=== PATIENT | female | born 1990 | race American Indian/Alaskan Native ===

== ENCOUNTER 2018-05-08 02:32 | Emergency (ER) | payer BC ==
[2018-05-08] MEDS ORDERED: Ondansetron 4 MG Tab.DIS PO ONE (02:57)
--- NOTE | 2018-05-08 03:04 | EDM.PDOC ---
ED HPI GENERAL MEDICAL PROBLEM - General Chief Complaint: General Stated Complaint: RIGHT SIDE SHOULDER AND HIP PAIN Time Seen by Provider: 05/08/18 02:39 - History of Present Illness INITIAL COMMENTS - FREE TEXT/NARRATIVE: HISTORY AND PHYSICAL: History of present illness: The patient is a 27 y/o female who presents with complaints of nausea and 2 episodes of vomiting right shoulder posteriorly and right posterior hip pain after sustaining a fall yesterday morning. She says the fall occurred at a proximally 7 AM yesterday about 20 hours ago and she hit the right side of her head and has a lump there and landed on the right side of her body. She did not pass out or blacked out but she has had nausea and dizziness ever since the fall and she's been putting ice on the bump on her head. Patient did take over- the-counter medications and has discomfort but no discrete headache and no neck pain. She has no chest pain or shortness of breath and says the posterior right shoulder is tender and uncomfortable although she is able to move her arm and she also has discomfort in her right hip posteriorly more near the buttocks area. She has no midline back pain no lower extremity complaints and no left- sided complaints. The patient says that she has not vomited for at least 8 hours she has been taking small sips of fluid. The patient denies as she has an IUD in place and is not sexually active Review of systems: As per history of present illness and below otherwise all systems reviewed and negative. Past medical history: As per history of present illness and as reviewed below otherwise noncontributory. Surgical history: As per history of present illness and as reviewed below otherwise noncontributory. Social history: No reported history of drug or alcohol abuse. Family history: As per history of present illness and as reviewed below otherwise noncontributory. Physical exam: General: Well-developed well-nourished female who is nontoxic and ambulated to the ED without distress HEENT: Atraumatic except for a small localized area of soft tissue swelling behind the right ear without any mastoid tenderness and no scalp deformities,, normocephalic, pupils reactive, negative for conjunctival pallor or scleral icterus, mucous membranes moist, throat clear, neck supple, nontender, trachea midline. TMs are normal, EOMs are intact, there is no evidence of any facial defects deformities or soft tissue swelling Lungs: Clear to auscultation, breath sounds equal bilaterally, chest nontender. Heart: S1S2, regular rate and rhythm no overt murmurs. Abdomen: Soft, nondistended, nontender. Negative for masses or hepatosplenomegaly. Negative for costovertebral tenderness. Pelvis: Stable nontender. There is no hip tenderness on palpation especially on the right. There is some soft tissue tenderness at the right buttocks area and the right posterior pelvis area but it is more soft tissue in nature then bony. There is no visible evidence of any ecchymosis or erythema abrasions or soft tissue swelling Genitourinary: Deferred. Rectal: Deferred. Extremities: Atraumatic, full range of motion of all extremities including the right upper extremity with the patient has tenderness at the right scapula and right AC joint area without clavicle tenderness or humerus tenderness.. Neurovascular unremarkable. Neuro: Awake, alert, oriented. Cranial nerves II through XII unremarkable. Cerebellum unremarkable. Motor and sensory unremarkable throughout. Exam nonfocal. Back: There are no midline step-offs in his defects of the thoracic lumbar spine Diagnostics: CT scan of the head, x-ray of the right shoulder Therapeutics: Zofran Toradol Impression: Fall with right posterior shoulder and right posterior hip contusion, concussion syndrome Definitive disposition and diagnosis as appropriate pending reevaluation and review of above. Right Hip Pain Score (Numeric/FACES): 7 right shoulder Pain Score (Numeric/FACES): 5 - Related Data Allergies Allergy/AdvReac Type Severity Reaction Status Date / Time No Known Allergies Allergy Verified 05/08/18 02:45 Home Meds: Home Meds . 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 ED EXAM, GENERAL - Physical Exam Exam: See Below (See dictation) Course - Vital Signs Last Recorded V/S: Last Vital Signs Temp 36.1 C 05/08/18 02:42 Pulse 75 05/08/18 02:42 Resp 17 05/08/18 02:42 BP 124/87 05/08/18 02:42 Pulse Ox 97 05/08/18 02:42 - Orders/Labs/Meds Orders: Active Orders 24 hr Category Date Time Status Head wo Cont [CT] Stat Exams 05/08/18 02:57 Ordered Shoulder Comp Rt [CR] Stat Exams 05/08/18 02:57 Ordered Meds: Medications Discontinued Medications Generic Name Dose Route Start Last Admin Trade Name Garcíaq PRN Reason Stop Dose Admin Ketorolac Tromethamine 60 mg 05/08/18 03:06 05/08/18 03:08 Toradol IM 05/08/18 03:07 60 mg ONETIME ONE Administration Ondansetron HCl 4 mg 05/08/18 02:57 05/08/18 03:04 Zofran Odt PO 05/08/18 02:58 4 mg ONETIME ONE Administration Departure - Departure Time of Disposition: 03:45 Disposition: Home, Self-Care 01 Condition: Good Clinical Impression: Fall Qualifiers: Encounter type: initial encounter Qualified Code(s): W19.XXXA - Unspecified fall, initial encounter Contusion of shoulder Qualifiers: Encounter type: initial encounter Laterality: right Qualified Code(s): S40.011A - Contusion of right shoulder, initial encounter Contusion of hip Qualifiers: Encounter type: initial encounter Laterality: right Qualified Code(s): S70.01XA - Contusion of right hip, initial encounter Concussion Qualifiers: Encounter type: initial encounter Loss of consciousness presence/duration: without LOC Qualified Code(s): S06.0X0A - Concussion without loss of consciousness, initial encounter - Discharge Information Referrals: PCP,None [Primary Care Provider] - Forms: ED Department Discharge Additional Instructions: The following information is given to patients seen in the emergency department who are being discharged to home. This information is to outline your options for follow-up care. We provide all patients seen in our emergency department with a follow-up referral. The need for follow-up, as well as the timing and circumstances, are variable depending upon the specifics of your emergency department visit. If you don't have a primary care physician on staff, we will provide you with a referral. We always advise you to contact your personal physician following an emergency department visit to inform them of the circumstance of the visit and for follow-up with them and/or the need for any referrals to a consulting specialist. The emergency department will also refer you to a specialist when appropriate. This referral assures that you have the opportunity for followup care with a specialist. All of these measure are taken in an effort to provide you with optimal care, which includes your followup. Under all circumstances we always encourage you to contact your private physician who remains a resource for coordinating your care. When calling for followup care, please make the office aware that this follow-up is from your recent emergency room visit. If for any reason you are refused follow-up, please contact the [facility] emergency department at and ask to speak to the emergency department charge nurse. [facility]- Internal Medicine and Family [address] [address] Use ice to all areas of discomfort and expect aches and pains of the next several days to one week. Use [id number] Tylenol or ibuprofen for any pain. Signs and symptoms of concussion can last anywhere from one day to 2 weeks and the nausea dizziness lightheadedness is all part of that syndrome. Use Zofran as you have been prescribed for nausea and vomiting. Push sips of fluids and bland bites of food. Call and schedule a follow-up appointment with one of our providers or with your provider the next few days for reevaluation and further care and return to ER as needed and as discussed - My Orders Last 24 Hours: My Active Orders 05/08/18 02:57 Head wo Cont [CT] Stat Shoulder Comp Rt [CR] Stat - Assessment/Plan Last 24 Hours: My Active Orders 05/08/18 02:57 Head wo Cont [CT] Stat Shoulder Comp Rt [CR] Stat
[2018-05-08] MEDS ORDERED: Ketorolac 60 MG/2 ML SDV IM ONE (03:06)
--- NOTE | 2018-05-08 04:05 | CR ---
INDICATION: Shoulder pain COMPARISON: None available. TECHNIQUE: The right shoulder was examined with AP, axillary, and outlet views for a total of three views. FINDINGS: The osseous structures are in anatomic alignment without fracture or dislocation. There is anatomic alignment of the humeral head and glenoid. The visualized chest is clear. IMPRESSION: Normal right shoulder. Dictated by Keny Ribera MD @ May 08 2018 4:04AM Signed by Dr. Keny Ribera @ May 08 2018 4:05AM
--- NOTE | 2018-05-08 04:05 | CT ---
INDICATION: Pain COMPARISON: None available. TECHNIQUE: CT examination of the head was performed with 3 mm thick axial sections without intravenous contrast. Images were obtained from the vertex of the skull through the skull base, and I examined the images with the brain and bone windows. Please note that all CT scans at this facility use dose modulation, iterative reconstruction, and/or weight-based dosing when appropriate to reduce radiation dose to as low as reasonably achievable. FINDINGS: : The brain is normal in appearance for the patient`s age on today`s study, with no sign of mass lesion, mass effect, hemorrhage, or edema. Incidental note is made of a cavum septum pellucidum and cavum vergae. The ventricles and sulci are otherwise normal in appearance for the patient`s age. The visualized portions of the orbits are normal in appearance. There is moderate mucosal thickening in the left maxillary sinus from moderate chronic sinusitis. The rest of the visualized visualized portions of the paranasal sinuses and mastoids are clear. The osseous structures are normal in their appearance with no sign of abnormality in the skull base or calvarium. IMPRESSION: Normal noncontrast CT of the brain for the patient`s age with nothing seen in the brain to explain the patient`s headaches. Moderate chronic left maxillary sinusitis. Please note that all CT scans at this facility use dose modulation, iterative reconstruction, and/or weight-based dosing when appropriate to reduce radiation dose to as low as reasonably achievable. Dictated by Keny Ribera MD @ May 08 2018 4:02AM Signed by Dr. Keny Ribera @ May 08 2018 4:04AM
== END 2018-05-08 04:15 | disposition home or self-care (01) ==
LOC: MW.ED 02:32
DX: S06.0X0A Concussion without loss of consciousness, initial encounter (principal); S40.011A Contusion of right shoulder, initial encounter; S70.01XA Contusion of right hip, initial encounter; R11.2 Nausea with vomiting, unspecified; F17.210 Nicotine dependence, cigarettes, uncomplicated; W19.XXXA Unspecified fall, initial encounter
CPT/HCPCS: 70450; 73030; 96372; 99284; A9270; J1885

== ENCOUNTER 2020-04-13 05:36 | Emergency (ER) | payer BC ==
--- NOTE | 2020-04-13 05:54 | EDM.PDOC ---
<JoseNakul Silver - Last Filed: 04/13/20 09:17> ED HPI GENERAL MEDICAL PROBLEM - General Chief Complaint: Respiratory Problem Stated Complaint: CHEST PAIN Time Seen by Provider: 04/13/20 05:38 - Related Data Allergies Allergy/AdvReac Type Severity Reaction Status Date / Time No Known Allergies Allergy Verified 04/13/20 05:46 Home Meds: Home Meds . [No Known Home Meds] 05/08/18 [History] Course - Re-Assessments/Exams Free Text/Narrative Re-Assessment/Exam: 04/13/20 07:20 Patient has an elevated troponin. Patient EKG does not show any ischemic changes. Patient has pain only with deep breaths. Will obtain CT PE and likely admission or transfer. 04/13/20 09:[address] PE does not show any clots. We spoke to [facility] and patient will be transferring him there she was sent to the ER. Will start patient on heparin. Departure - Departure Time of Disposition: 09:17 Disposition: DC/Tfer to [facility] 02 Clinical Impression: Pleurisy, Viral syndrome, Elevated troponin - Discharge Information *PRESCRIPTION DRUG MONITORING PROGRAM REVIEWED*: Not Applicable *COPY OF PRESCRIPTION DRUG MONITORING REPORT IN PATIENT LY: Not Applicable Instructions: Viral Illness, Adult, Pleurisy, [id number] Referrals: PCP,None [Primary Care Provider] - Forms: ED Department Discharge Additional Instructions: Notes at the end of my shift with troponin I pending: These instructions will be given to patient if troponin is normal and remains so: [id number] anti-inflammatory medicine such as ibuprofen or naproxen are advised for the pain. [facility] - Primary Care [address] [place] [address] [id number] [address] [address] The following information is given to patients seen in the emergency department who are being discharged to home. This information is to outline your options for follow-up care. We provide all patients seen in our emergency department with a follow-up referral. The need for follow-up, as well as the timing and circumstances, are variable depending upon the specifics of your emergency department visit. If you don't have a primary care physician on staff, we will provide you with a referral. We always advise you to contact your personal physician following an emergency department visit to inform them of the circumstance of the visit and for follow-up with them and/or the need for any referrals to a consulting specialist. The emergency department will also refer you to a specialist when appropriate. This referral assures that you have the opportunity for follow-up care with a specialist. All of these measure are taken in an effort to provide you with optimal care, which includes your follow-up. Under all circumstances we always encourage you to contact your private physician who remains a resource for coordinating your care. When calling for follow-up care, please make the office aware that this follow-up is from your recent emergency room visit. If for any reason you are refused follow-up, please contact the [facility] Emergency Department at and asked to speak to the emergency department charge nurse. <Tim Covington - Last Filed: 04/13/20 18:46> ED HPI GENERAL MEDICAL PROBLEM - History of Present Illness INITIAL COMMENTS - FREE TEXT/NARRATIVE: History of present illness: [] The patient enjoys reasonably good health. She presented 2:30 PM on the 12th of this month she developed a headache. Subsequently she has had chills of breath and chest pressure. She has a sharp stabbing pain in her chest when she breathes. She has a little bit of a cough. Exertion makes it all worse. Review of systems: As per history of present illness and below otherwise all systems reviewed and negative. Past medical history: As per history of present illness and as reviewed below otherwise noncontributory. Surgical history: As per history of present illness and as reviewed below otherwise noncontributory. Social history: No reported history of drug or alcohol abuse. The patient smokes tobacco. Family history: As per history of present illness and as reviewed below otherwise noncontributory. The mother had a stroke at a young age. The mother also had breast cancer. She young. The great aunt also had heart disease with she also had cancer. Physical exam: Constitutional - well developed, well-nourished and in no acute distress HEENT - normocephalic, no evidence of trauma - external nose and mouth normal - no mass in neck and no JVD - mucosae moist EYES - full EOM, PERRL, no icterus - no evidence of inflammation, injection, or drainage Respiratory - no respiratory distress, equal bilateral expansion, lungs clear to auscultation and no abnormal lung sounds Cardiovascular - Regular Rhythm with S1 and S2 appreciated and no murmur, gallop or rub. GI - abdomen soft without distension or organomegaly - normal bowel sounds - no guard or rebound Musculoskeletal no gross deformity of long bones or joints - no tenderness, swelling or edema Neurologic - Alert and oriented times four - CN II-XII grossly intact - motor sensory and coordination symmetrically normal Psychiatric - appropriate mood and affect with normal thought content Hematologic - No petechiae or purpura - mucosa appropriate color and sclera not pale - normal nail bed color and refill Integument - no rash or evidence of trauma - normal turgor Diagnostics: [] Therapeutics: [] Impression: [] Plan: [] Definitive disposition and diagnosis as appropriate pending reevaluation and review of above. 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 ED EXAM, GENERAL - Physical Exam Exam: See Below Free Text/Narrative:: My physical exam is in the HPI #1 Interpretation EKG Interpretation Comments: EKG done at 5:39 AM sinus tachycardia heart rate 101 [place] 159 QT 457 axis 62 late transition R wave in the precordium nonspecific ST findings. No prior for comparison. Impression no obvious injury Course - Vital Signs Text/Narrative:: 6:46 AM the chest x-ray appears normal to me. At 7 AM the troponin I was not reported and so disposition turned over to my partner at the end of m shift. Patient was stable/ Last Recorded V/S: Last Vital Signs Temp 36.3 C 04/13/20 09:45 Pulse 82 04/13/20 10:53 Resp 18 04/13/20 10:53 BP 131/75 04/13/20 10:53 Pulse Ox 97 04/13/20 10:53 - Orders/Labs/Meds Labs: Laboratory Tests 04/13/20 04/13/20 04/13/20 Range/Units 06:05 06:26 06:26 WBC 12.62 H (4.0-11.0) K/uL RBC 4.54 (4.30-5.90) M/uL Hgb 14.1 (12.0-16.0) g/dL Hct 42.3 (36.0-46.0) % MCV 93.2 (80.0-98.0) fL MCH 31.1 (27.0-32.0) pg MCHC 33.3 (31.0-37.0) g/dL RDW Std Deviation 43.0 (28.0-62.0) fl RDW Coeff of Chevy 13 (11.0-15.0) % Plt Count 246 (150-400) K/uL MPV 10.30 (7.40-12.00) fL Neut % (Auto) 67.0 (48.0-80.0) % Lymph % (Auto) 21.8 (16.0-40.0) % [place] % (Auto) 8.9 (0.0-15.0) % Eos % (Auto) 2.1 (0.0-7.0) % Baso % (Auto) 0.2 (0.0-1.5) % Neut # (Auto) 8.5 H (1.4-5.7) K/uL Lymph # (Auto) 2.8 H (0.6-2.4) K/uL [place] # (Auto) 1.1 H (0.0-0.8) K/uL Eos # (Auto) 0.3 (0.0-0.7) K/uL Baso # (Auto) 0.0 (0.0-0.1) K/uL Nucleated RBC % 0.0 /100WBC Nucleated RBCs # 0 K/uL INR APTT (18.6-31.3) SEC Sodium 141 (136-145) mmol/L Potassium 3.7 (3.5-5.1) mmol/L Chloride 105 (98-107) mmol/L Carbon Dioxide 25.5 (21.0-32.0) mmol/L BUN 7 (7.0-18.0) mg/dL Creatinine 0.7 (0.6-1.0) mg/dL Est Cr Clr Drug Dosing 107.67 mL/min Estimated GFR (MDRD) > 60.0 ml/min Glucose 147 H (74-106) mg/dL Calcium 8.3 L (8.5-10.1) mg/dL Total Bilirubin 0.5 (0.2-1.0) mg/dL AST 39 H (15-37) IU/L ALT 82 H (14-63) IU/L Alkaline Phosphatase 61 (46-116) U/L Creatine Kinase (26-308) U/L Troponin I 0.290 H* (0.000-0.056) ng/mL Total Protein 7.9 (6.4-8.2) g/dL Albumin 3.6 (3.4-5.0) g/dL Globulin 4.3 H (2.6-4.0) g/dL Albumin/Globulin Ratio 0.8 L (0.9-1.6) HCG, Qual (NEG) SARS-CoV-2 RNA (BRAN) NEGATIVE (NEGATIVE) 04/13/20 04/13/20 04/13/20 Range/Units 06:26 06:26 09:08 WBC (4.0-11.0) K/uL RBC (4.30-5.90) M/uL Hgb (12.0-16.0) g/dL Hct (36.0-46.0) % MCV (80.0-98.0) fL MCH (27.0-32.0) pg MCHC (31.0-37.0) g/dL RDW Std Deviation (28.0-62.0) fl RDW Coeff of Chevy (11.0-15.0) % Plt Count (150-400) K/uL MPV (7.40-12.00) fL Neut % (Auto) (48.0-80.0) % Lymph % (Auto) (16.0-40.0) % Woodford % (Auto) (0.0-15.0) % Eos % (Auto) (0.0-7.0) % Baso % (Auto) (0.0-1.5) % Neut # (Auto) (1.4-5.7) K/uL Lymph # (Auto) (0.6-2.4) K/uL [place]ford # (Auto) (0.0-0.8) K/uL Eos # (Auto) (0.0-0.7) K/uL Baso # (Auto) (0.0-0.1) K/uL Nucleated RBC % /100WBC Nucleated RBCs # K/uL INR 1.03 APTT 27.3 (18.6-31.3) SEC Sodium (136-145) mmol/L Potassium (3.5-5.1) mmol/L Chloride (98-107) mmol/L Carbon Dioxide (21.0-32.0) mmol/L BUN (7.0-18.0) mg/dL Creatinine (0.6-1.0) mg/dL Est Cr Clr Drug Dosing mL/min Estimated GFR (MDRD) ml/min Glucose (74-106) mg/dL Calcium (8.5-10.1) mg/dL Total Bilirubin (0.2-1.0) mg/dL AST (15-37) IU/L ALT (14-63) IU/L Alkaline Phosphatase (46-116) U/L Creatine Kinase 39 (26-308) U/L Troponin I 0.309 H* (0.000-0.056) ng/mL Total Protein (6.4-8.2) g/dL Albumin (3.4-5.0) g/dL Globulin (2.6-4.0) g/dL Albumin/Globulin Ratio (0.9-1.6) HCG, Qual NEGATIVE (NEG) SARS-CoV-2 RNA (BRAN) (NEGATIVE) Meds: Medications Discontinued Medications Generic Name Dose Route Start Last Admin Trade Name Freq PRN Reason Stop Dose Admin Aspirin 324 mg 04/13/20 07:16 04/13/20 07:25 Aspirin PO 04/13/20 07:17 324 mg ONETIME ONE Administration Heparin Sodium (Porcine) 4,000 units 04/13/20 09:20 04/13/20 09:39 Heparin Sodium IVPUSH 04/13/20 09:21 4,000 units .BOLUS ONE Administration Heparin Sodium/Sodium Chloride 500 mls @ 23.95 mls/hr 04/13/20 09:30 04/13/20 09:40 Heparin 25,000 Units In 1/2 Ns 500 Ml IV 12 units/kg/hr TITRATE BEN 23.95 mls/hr Administration Protocol 12 UNITS/KG/HR Iopamidol 100 ml 04/13/20 08:24 04/13/20 08:25 Isovue Multipack-370 (76%) IVPUSH 04/13/20 08:25 100 ml ONETIME ONE Administration Departure - Departure Condition: Good Sepsis Event Note (ED) - Evaluation Sepsis Screening Result: No Definite Risk - Focused Exam Vital Signs: Vital Signs Temp Pulse Resp BP Pulse Ox 04/13/20 10:53 82 18 131/75 97 04/13/20 09:45 36.3 C 80 16 121/59 L 97 04/13/20 09:12 36.3 C 75 16 125/56 L 96 04/13/20 07:26 97 18 136/79 96
--- NOTE | 2020-04-13 06:37 | CR ---
INDICATION: Chest pain. TECHNIQUE: Portable upright AP view of the chest. COMPARISON: 02/24/2012. FINDINGS: Normal cardiac, mediastinal and hilar contours. Normal pulmonary vasculature. Lungs are grossly clear. No appreciable pleural fluid. No pneumothorax. IMPRESSION: No radiographic signs of acute cardiopulmonary disease. Dictated by Yaron Coffman MD @ 04/13/2020 6:35:37 AM Dictated by: Yaron Coffman MD @ 04/13/2020 06:35:53 (Electronically Signed)
[2020-04-13 07:06] LABS: BLOOD UREA NITROGEN,BUN 7 mg/dL (7.0-18.0); CARBON DIOXIDE,CO2 25.5 mmol/L (21.0-32.0); CHLORIDE,CL 105 mmol/L (98-107); GLUCOSE RANDOM 147 mg/dL (74-106); POTASSIUM,K 3.7 mmol/L (3.5-5.1); SODIUM,NA 141 mmol/L (136-145)
[2020-04-13] MEDS ORDERED: Aspirin 81 MG Tab.Chew PO ONE (07:16)
[2020-04-13] MEDS ORDERED: Iopamidol 755 MG/ML 500 ML Multipack Bottle IVPUSH ONE (08:24)
--- NOTE | 2020-04-13 09:13 | CT ---
Indication: Back pain that starts in the chest and radiates to the back Technique: Volumetric multidetector CT images of the chest were obtained after the administration of IV contrast. 100 cc Isovue 370 low osmolar intravenous contrast Comparison: None available. Findings: The thoracic inlet and thyroid gland are unremarkable. The thoracic aorta is nonaneurysmal. There is mildly limited evaluation of the pulmonary arteries due to poor contrast opacification. There is no large central filling defect. There is no mediastinal, hilar or axillary adenopathy. There is central bronchial thickening without evidence of significant bronchiectasis. There is no focal consolidation, effusion or pneumothorax. There is no evidence of pulmonary mass or suspicious pulmonary nodule. The partially visualized upper abdomen demonstrates moderate hepatic steatosis. The thoracic vertebral body heights remain intact alignment without significant degenerative change or acute osseous abnormality. Impression: Mildly limited evaluation of the pulmonary arteries due to contrast bolus timing, otherwise no evidence central filling defect or acute cardiopulmonary abnormality. Please note that all CT scans at this facility use dose modulation, iterative reconstruction, and/or weight-based dosing when appropriate to reduce radiation dose to as low as reasonably achievable. Dictated by Robles Garcia MD @ Apr 13 2020 9:02AM Signed by Dr. Robles Garcia @ Apr 13 2020 9:11AM
[2020-04-13] MEDS ORDERED: Heparin Sodium 5,000 Units/ML Vial IVPUSH ONE (09:20)
[2020-04-13] MEDS ORDERED: Heparin Sodium/0.45% NaCl 500 ML IV SCH (09:30)
== END 2020-04-13 10:59 ==
LOC: MW.ED 05:36
DX: R09.1 Pleurisy (principal); B34.9 Viral infection, unspecified; R79.89 Other specified abnormal findings of blood chemistry; Z79.899 Other long term (current) drug therapy; Z20.822 Contact with and (suspected) exposure to COVID-19
CPT/HCPCS: 36415; 71045; 71275; 80053; 82550; 84484; 84703; 85025; 85610; 85730; 87635; 93005; 96365; 99285; A9270; J1644; Q9967; U0002